=== PATIENT | female | born 1985 | race Two or more races ===

== ENCOUNTER 2017-03-06 00:21 | Emergency (ER) | payer BC ==
[~2017-03-06] VITALS: Ht 157.5 cm; Wt 61.2 kg
[2017-03-06] MEDS ORDERED: BC PILL (00:32)
[2017-03-06] MEDS ORDERED: ALPRAZOLAM 0.25 MG TABLET PO ONE (01:00)
[2017-03-06] MEDS ORDERED: ALPRAZOLAM 0.25 MG TABLET ONE (01:05)
[2017-03-06 01:08] LABS: *URINE HCG, QUAL NEGATIVE (NEGATIVE)
--- NOTE | 2017-03-06 03:06 | NUR ---
Patient discharged to home in stable conditon. Written and verbal after care instructions given. Patient verbalizes understanding of instructions.
[2017-03-07] MEDS ORDERED: HYDR-3641 PO (23:42)
== END 2017-03-06 03:07 | disposition home or self-care (01) ==
LOC: ER 00:25
DX: F41.0 Panic disorder [episodic paroxysmal anxiety] (principal)
CPT/HCPCS: 84703; A4663

== ENCOUNTER 2017-03-07 23:22 | Emergency (ER) | payer BC ==
[~2017-03-07] VITALS: Ht 157.5 cm; Wt 61.2 kg
[~2017-03-07 23:22] MED LIST: BC PILL
[2017-03-07] MEDS ORDERED: HYDR-3641 PO (23:42)
--- NOTE | 2017-03-07 23:51 | NUR ---
Pt to room, changed into gown. Pt c/o upper abd pain, N/V/D. Sts unable to "keep things down". Pt seen here last Fri on 03/05/17 for same complaints. Sts everything has gotten worse. Pt resting in position of comfort for self. Awaiting further eval
[2017-03-08] MEDS ORDERED: IV NORMAL SALINE 1000 ML BAG IV ONE (00:45)
[2017-03-08] MEDS ORDERED: METOCLOPRAMIDE HCL 10 MG/2 ML VIAL IV ONE (00:45)
[2017-03-08 01:05] LABS: BASOPHILS # (AUTO) 0.1 K/uL (0.0-8.0); BASOPHILS % (AUTO) 1.1 % (0.0-2.0); EOSINOPHILS # (AUTO) 0.1 K/uL (0.0-0.7); EOSINOPHILS % (AUTO) 1.3 % (0.0-7.0); HEMATOCRIT 41.6 % (37-47); HEMOGLOBIN 13.8 G/DL (12.0-16.0); LYMPHOCYTES # (AUTO) 3.6 K/UL (0.8-4.8); LYMPHOCYTES % (AUTO) 34.8 % (20.5-51.5); MEAN CORPUSCULAR HEMOGLOBIN 30.6 UUG (27.0-31.0); MEAN CORPUSCULAR HGB CONC 33 g/dL (32.0-37.0); MEAN CORPUSCULAR VOLUME 91.9 FL (81.0-99.0); MONOCYTES # (AUTO) 0.6 K/UL (0.1-1.30); MONOCYTES % (AUTO) 5.5 % (0.0-11.0); NEUTROPHILS # (AUTO) 5.9 K/UL (1.8-8.9); NEUTROPHILS % (AUTO) 57.3 % (38.5-71.5); PLATELET COUNT (AUTO) 272 K/UL (150-450); RED BLOOD CELL COUNT(AUTO) 4.52 MIL/UL (4.2-5.4); WHITE BLOOD COUNT (AUTO) 10.3 K/UL (4.0-11.2)
[2017-03-08] MEDS ORDERED: METOCLOPRAMIDE HCL 10 MG/2 ML VIAL ONE (01:19)
[2017-03-08 01:24] LABS: BILIRUBIN,DIRECT 0.2 mg/dL (0.0-0.2); BILIRUBIN,TOTAL 0.8 mg/dL (0.2-1.0); CREATININE 0.7 mg/dL (0.6-1.3); POTASSIUM 3.7 mmol/L (3.5-5.1); TOTAL PROTEIN, SERUM 7.4 g/dL (6.4-8.2)
--- NOTE | 2017-03-08 01:40 | NUR ---
Pt seen by . Labs drawn and sent. IV established. Pt medicated for nausea, will monitor for effects of medication. Fluid bolus started, infusing freely to gravity. Pt resting in position of comfort for self.
[2017-03-08 01:44] LABS: *BILIRUBIN,URIN NEGATIVE (NEGATIVE); *BLOOD, URINE NEGATIVE (NEGATIVE); *CLARITY,URINE CLEAR (CLEAR); *COLOR,URINE STRAW (YELLOW); *KETONES,URINE NEGATIVE (NEGATIVE); *PROTEIN,URINE NEGATIVE (NEGATIVE); *UROBILINOGEN,URINE 0.2 E.U./dl (NORMAL); LEUKOCYTE ESTERASE ,URINE NEGATIVE (NEGATIVE); NITRITE, URINE NEGATIVE (NEGATIVE); PH,URINE 6.5 (5.0-8.0); UGLUCOSE NEGATIVE (NEGATIVE)
[2017-03-08 01:53] LABS: BACTERIA,URINE 0 /HPF (NONE SEEN); SQUAMOUS EPITHELIAL CELL,UR FEW /HPF (NONE SEEN); WBC,URINE 0-3 /HPF (0-3); YEAST,URINE FEW /HPF (NONE SEEN)
--- NOTE | 2017-03-08 03:00 | NUR ---
Fluid bolus completed. Pt sts she is feeling better. Pt stable for discharge per MD. IV dc'd, catheter intact. Drsg applied. No problems noted to site. Pt given ACI. Pt verbalized understanding of dc instructions. 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
[2017-03-08 04:32] VITALS: BP 130/56
== END 2017-03-08 03:00 | disposition home or self-care (01) ==
LOC: ER 23:23
DX: R07.89 Other chest pain (principal); R19.7 Diarrhea, unspecified; R51 Headache; R11.0 Nausea; R42 Dizziness and giddiness; F41.9 Anxiety disorder, unspecified; F41.0 Panic disorder [episodic paroxysmal anxiety]
CPT/HCPCS: 36415; 70030-TC; 71010; 83690; 84703; 85025; 93005; A4663; J2765; J7030